=== PATIENT | male | born 1950 | race Caucasian/White ===

== ENCOUNTER 2019-04-02 17:45 | Emergency (ER) | payer MEDICARE, OTHER, SELFPAY ==
[2019-04-02 17:45] VITALS: BP 147/95; PULSE 72; RESP 14; TEMP 36.2; O2SAT 98; BMI 27.3
--- NOTE | 2019-04-02 18:00 | DI.RAD.S_ITS ---
PROCEDURE: XR FINGER RT MIN 2V INDICATIONS: crush injury TECHNIQUE: AP hand, 2 views of the second finger(s) acquired. COMPARISON: None. FINDINGS: Bones: No fractures or dislocations. No suspicious bony lesions. Osteophytic changes are noted involving the second DIP joint with near complete loss of joint space, subchondral sclerosis and cyst formation and marginal osteophyte formation. Soft tissues: No suspicious soft tissue calcifications. IMPRESSION: No acute second digit fracture or dislocation. Second DIP joint osteoarthritis. Dictated by: Amandeep Moreno M.D. on 04/02/2019 at 19:34 Approved by: Amandeep Moreno M.D. on 04/02/2019 at 19:40
[2019-04-02] MEDS: TET,DIPH,PERTUSS(ACELL),VAC/PF 0.5 ML SYRINGE IM (18:23)
--- NOTE | 2019-04-02 18:56 | ED_ITS ---
HPI - Skin/Abscess/Foreign Bdy General Chief complaint: Skin/Abscess/Foreign Body Stated complaint: right index finger laceration today Time Seen by Provider: 04/02/19 18:14 Source: patient Mode of arrival: ambulatory Limitations: no limitations History of Present Illness HPI narrative: Patient is a very pleasant 68-year-old gentleman who presents with right index finger injury. He said he was sitting on a folding chair when it fell any crush it. He has a laceration distally on the palmar side. He is able flex and extend it completely. No damage to the nail bed. complaint: laceration Related Data Home Medications Medication Instructions Recorded Confirmed AMLODIPINE BESYLATE (NORVASC) 10 mg PO Q DAY #0 04/19/10 LISINOPRIL (Zestril / Prinivil) Q DAY #0 04/19/10 Allergies Allergy/AdvReac Type Severity Reaction Status Date / Time No Known Drug Allergies Allergy Verified 04/02/19 17:59 Review of Systems Review of Systems GENERAL: Denies chills,fever HEENT: Denies throat pain RESPIRATORY: Denies dyspnea, cough, wheezing CARDIOVASCULAR: Denies chest pain, palpitations GASTROINTESTINAL: Denies nausea, vomiting MUSCULOSKELETAL: Denies extremity pain, injury SKIN: See HPI NEUROLOGIC: Denies weakness, dizziness, headache, numbness 8 point review of systems is negative except for those stated above and HPI PFSH Medical History Hypertension (Acute) Social History (Updated 04/03/19 @ 02:09 by Shiloh Atkins DO) marital status: Smoking Status: Never smoker Social History marital status: Smoking Status: Never smoker Exam Initial Vital Signs Initial Vital Signs: Vital Signs Temperature 97.1 F L 04/02/19 17:45 Pulse Rate 72 04/02/19 17:45 Respiratory Rate 14 04/02/19 17:45 Blood Pressure 147/95 H 04/02/19 17:45 Pulse Oximetry 98 04/02/19 17:45 GENERAL: Well-appearing, well-nourished and in no acute distress. CARDIOVASCULAR: peripheral pulses in tact, cap refill <2 sec RESPIRATORY: No respiratory distress, speaks in full sentences without difficulty EXTREMITIES: Normal range of motion, no clubbing or edema. Neurovascularly intact Right index finger able to flex and extend completely. He is noted have some arthritic changes in his PIP and DIP. NEUROLOGICAL: Cranial nerves II through XII grossly intact. Normal gait and speech. SKIN: Right index finger 6 cm laceration mostly on the palmar very distal end. It is flap-like. No damage to the nail bed. Procedures Laceration Repair Laceration 1: Site: hand Side (If applicable): right (index finger) Description: flap Depth: simple, single layer Local Anesthetic: lidocaine 1% Amount of anesthesia used (mL): 5 Pre-repair: wound explored, irrigated extensively and deep structures intact Skin layer closed with: nylon Size (cm): 5-0 Number of sutures: 6 Technique: simple, interrupted Nerve Block Nerve Block 1: Time out performed: Yes Local Anesthetic: lidocaine 1% Amount of anesthesia used (mL): 5 Side: right (index finger) Nerve Blocks: digital Procedure Successful: Yes Patient Tolerated Procedure: Well Complications: none Course Orders Ordered: ED Orders 04/02/19 18:00 XR finger RT min 2V Stat Discontinued Medications Diphtheria/Tetanus/Acell Pertussis (Adacel) 0.5 ml IM .ONCE ONE Stop: 04/02/19 18:20 Last Admin: 04/02/19 18:23 Dose: 0.5 ml Ondansetron HCl (Zofran Odt) 4 mg PO NOW ONE Stop: 04/02/19 18:02 Last Admin: 04/02/19 18:19 Dose: Not Given Vital Signs - 8 hr 04/02/19 19:23 Pulse Rate 70 Respiratory Rate 17 Blood Pressure [Left Arm] 133/72 Pulse Oximetry 98 MDM - Skin/Abscess/Foreign Bdy Imaging Data finger XR: Radiologist's impression: PROCEDURE: XR FINGER RT MIN 2V INDICATIONS: crush injury TECHNIQUE: AP hand, 2 views of the second finger(s) acquired. COMPARISON: None. FINDINGS: Bones: No fractures or dislocations. No suspicious bony lesions. Osteophytic changes are noted involving the second DIP joint with near complete loss of joint space, subchondral sclerosis and cyst formation and marginal osteophyte formation. Soft tissues: No suspicious soft tissue calcifications. IMPRESSION: No acute second digit fracture or dislocation. Second DIP joint osteoarthritis. Dictated by: Amandeep Moreno M.D. on 04/02/2019 at 19:34 Approved by: Amandeep Moreno M.D. on 04/02/2019 at 19:40 Discharge Plan Departure Patient Disposition: Home Clinical Impression: Laceration of right index finger w/o foreign body w/o damage to nail Qualifiers: Encounter type: initial encounter Qualified Code(s): S61.210A - Laceration without foreign body of right index finger without damage to nail, initial encounter Discharge Date/Time: 04/02/19 19:25 Interventions: ED Discharge Assessment Last Done: 04/02/19 19:25 Instructions: DI for Laceration Repair -- Finger Activity Restrictions/Additional Instructions: Wound Care: Have sutures removed in 5-7 days by your PCP. Keep wound(s) clean and dry. Wash daily with soap and water only. Do not use over the counter products (alcohol or peroxide) on the wounds unless instructed by a physician. If wound condition worsens (increased/expanding redness, developing fluid blisters,or worsening pain), either contact your doctor for an urgent re- assessment , or return to the Emergency Department. Return to the Emergency Department for any new or worsening symptoms. Return to the ED for suture/staple removal or visit a primary care doctor for removal. Return sooner for infections or problems with wound Take medications as directed Prescriptions: No Action LISINOPRIL (Zestril / Prinivil) Q DAY Qty: 0 RF: 0 AMLODIPINE BESYLATE (NORVASC) 10 mg PO Q DAY Qty: 0 RF: 0 Referrals: Negrita Anderson MD [Primary Care Provider] -
[2019-04-02 19:23] VITALS: BP 133/72; PULSE 70; RESP 17; O2SAT 98
== END 2019-04-02 19:25 | disposition home or self-care (01) ==
PROVIDERS: Emergency Provider Emergency Medicine; Family Provider Internal Medicine; PCP Internal Medicine
DX: S61.210A Laceration without foreign body of right index finger without damage to nail, initial encounter (principal); W23.0XXA Caught, crushed, jammed, or pinched between moving objects, initial encounter; Z23 Encounter for immunization
CPT/HCPCS: 12002; 64450; 73140; 90471; 99283; 90715

== ENCOUNTER → 2019-09-09 12:57 | Outpatient (ROUT) | payer MEDICARE, OTHER, SELFPAY ==
[2019-09-09 12:59] LABS: Bacteria Urine None Seen; RBC Urine None Seen (0-5/HPF)
[2019-09-09 13:09] LABS: Appearance Urine UA CLEAR; Bilirubin Urine UA NEGATIVE (NEGATIVE); Color Urine UA YELLOW; Glucose Urine UA NEGATIVE (Negative); Ketones Urine UA NEGATIVE (NEGATIVE); Leukocyte Esterase Urine UA NEGATIVE (NEGATIVE); Nitrite Urine UA NEGATIVE (Negative); Occult Blood Urine UA NEGATIVE (Negative); Protein Urine UA NEGATIVE (Negative); Urobilinogen Urine UA 0.2 E.U./dL (0.2); pH Urine UA 7.5 (4.5-8.0)
[2019-09-09 13:13] LABS: Add Manual Diff / Slide Review NO; Basophils Absolute Auto 100 /uL (0-100); Basophils Percent Auto 0.8 % (0-2); Eosinophils Absolute Auto 100 /uL (0-450); Eosinophils Percent Auto 2.1 % (2-4); Hematocrit 47.6 % (41-53); Hemoglobin 16.5 g/dL (13.5-17.5); Lymphocytes Absolute Auto 1100 /uL (1100-4500); Lymphocytes Percent Auto 18.1 % (25-40); Mean Corpuscular HGB Conc 34.6 % (30-36); Mean Corpuscular Hemoglobin 32.8 PG (26-34); Mean Corpuscular Volume 94.8 fL (80-100); Monocytes Absolute Auto 700 /uL (0-900); Monocytes Percent Auto 11.5 % (3-14); Neutrophils Absolute Auto 4000 /uL (1500-7000); Neutrophils Percent Auto 67.5 % (50-75); Platelet Count 223 X10^3/uL (150-400); Red Blood Cell Count 5.02 X10^6/uL (4.5-5.9)
[2019-09-09 13:17] LABS: Alanine Aminotransferase 55 IU/L (<50); Albumin 4.6 g/dL (3.5-5.0); Albumin Globulin Ratio 1.6 (1.0-2.8); Alkaline Phosphatase 68 U/L (38-126); Aspartate Aminotransferase 47 IU/L (17-59); BUN Creatinine Ratio 18.6 (6-22); Bilirubin Total 0.8 mg/dL (0.2-1.3); Blood Urea Nitrogen 13 mg/dL (9-20); Calcium 10.1 mg/dL (8.4-10.2); Carbon Dioxide 30 mmol/L (22-32); Chloride 104 mmol/L (98-107); Cholesterol 197 mg/dL (140-199); Estimated Glomerular Filt Rate > 60.0 mL/min (>60); Globulin 2.9 g/dL (1.7-4.1); Glucose 97 mg/dL (80-110); HDL Cholesterol 60 mg/dL (40-60); HEMOLYSIS < 15 (0-50); LDL Cholesterol Calculated 106 mg/dL (<100); Potassium 3.7 mmol/L (3.4-5.1); Sodium 143 mmol/L (137-145); Total Protein 7.5 g/dL (6.3-8.2); Triglycerides 154 mg/dL (35-150)
[2019-09-09 13:36] LABS: WBC Urine 5-10/HPF (0-5/HPF)
[2019-09-09 13:37] LABS: Amorphous Sediment Urine 3+; Culture Indicated Urine Specimen Cultured
[2019-09-13 14:51] LABS: PSA Total 0.87 ng/mL (< 4.01)
== END ==
PROVIDERS: Family Provider Internal Medicine; PCP Internal Medicine; Visit Provider Internal Medicine
DX: E78.2 Mixed hyperlipidemia (principal); I10 Essential (primary) hypertension; Z12.11 Encounter for screening for malignant neoplasm of colon; Z12.5 Encounter for screening for malignant neoplasm of prostate
CPT/HCPCS: 80053; 80061; 81001; 84153; 84154; 85025; 87086

== ENCOUNTER → 2020-09-11 15:51 | Outpatient (ROUT) | payer MEDICARE, OTHER, SELFPAY ==
[2020-09-11 16:04] LABS: Add Manual Diff / Slide Review NO; Basophils Absolute Auto 0 /uL (0-100); Basophils Percent Auto 0.8 % (0-2); Eosinophils Absolute Auto 200 /uL (0-450); Eosinophils Percent Auto 3.2 % (2-4); Hematocrit 44.7 % (41-53); Hemoglobin 15.2 g/dL (13.5-17.5); Lymphocytes Absolute Auto 1100 /uL (1100-4500); Lymphocytes Percent Auto 18.9 % (25-40); Mean Corpuscular HGB Conc 34.1 % (30-36); Mean Corpuscular Hemoglobin 32.5 PG (26-34); Mean Corpuscular Volume 95.2 fL (80-100); Monocytes Absolute Auto 700 /uL (0-900); Neutrophils Absolute Auto 4000 /uL (1500-7000); Neutrophils Percent Auto 66.1 % (50-75); Platelet Count 212 X10^3/uL (150-400); Red Cell Distribution Width 12.9 % (11.6-14.8)
[2020-09-11 16:11] LABS: Alanine Aminotransferase 72 IU/L (<50); Albumin 4.3 g/dL (3.5-5.0); Albumin Globulin Ratio 1.4 (1.0-2.8); Alkaline Phosphatase 68 U/L (38-126); Aspartate Aminotransferase 51 IU/L (17-59); BUN Creatinine Ratio 18.9 (6-22); Bilirubin Total 0.9 mg/dL (0.2-1.3); Blood Urea Nitrogen 14 mg/dL (9-20); Calcium 9.4 mg/dL (8.4-10.2); Carbon Dioxide 30 mmol/L (22-32); Chloride 104 mmol/L (98-107); Cholesterol 206 mg/dL (140-199); Estimated Glomerular Filt Rate > 60.0 mL/min (>60); Globulin 3.1 g/dL (1.7-4.1); Glucose 91 mg/dL (80-110); HDL Cholesterol 61 mg/dL (40-60); HEMOLYSIS < 15 (0-50); LDL Cholesterol Calculated 106 mg/dL (<100); Potassium 3.8 mmol/L (3.4-5.1); Sodium 140 mmol/L (137-145); Total Protein 7.4 g/dL (6.3-8.2); Triglycerides 194 mg/dL (35-150)
[2020-09-11 16:40] LABS: TSH w/ Reflex to FT4 1.58 uIU/mL (0.47-4.68)
[2020-09-11 19:14] LABS: Bacteria Urine None Seen; RBC Urine None Seen (0-5/HPF)
[2020-09-11 19:22] LABS: Appearance Urine UA CLEAR; Bilirubin Urine UA NEGATIVE (NEGATIVE); Color Urine UA YELLOW; Glucose Urine UA NEGATIVE (Negative); Ketones Urine UA NEGATIVE (NEGATIVE); Leukocyte Esterase Urine UA NEGATIVE (NEGATIVE); Nitrite Urine UA NEGATIVE (Negative); Occult Blood Urine UA NEGATIVE (Negative); Protein Urine UA NEGATIVE (Negative); Urobilinogen Urine UA 0.2 E.U./dL (0.2)
[2020-09-11 19:29] LABS: Culture Indicated Urine Cult Not Indicated; Squamous Epithelial Cell Urine 0-1 /HPF (0-5/HPF); WBC Urine 0-1/HPF (0-5/HPF)
== END ==
PROVIDERS: Family Provider Internal Medicine; PCP Internal Medicine; Visit Provider Internal Medicine
DX: I10 Essential (primary) hypertension (principal); E78.2 Mixed hyperlipidemia; Z12.5 Encounter for screening for malignant neoplasm of prostate
CPT/HCPCS: 80053; 80061; 81001; 84443; 85025; G0103

== ENCOUNTER → 2021-04-02 10:13 | Outpatient (CLI) | payer MEDICARE, OTHER, SELFPAY ==
[2021-04-02 12:21] LABS: Alanine Aminotransferase 67 IU/L (<50); Albumin 4.5 g/dL (3.5-5.0); Albumin Globulin Ratio 1.4 (1.0-2.8); Alkaline Phosphatase 59 U/L (38-126); Aspartate Aminotransferase 58 IU/L (17-59); Bilirubin Total 1.3 mg/dL (0.2-1.3); Bilirubin Unconjugated 1.1 mg/dL (0.0-1.1); Globulin 3.2 g/dL (1.7-4.1); HEMOLYSIS < 15 (0-50); Total Protein 7.7 g/dL (6.3-8.2)
== END ==
PROVIDERS: Family Provider Internal Medicine; PCP Internal Medicine; Referring Provider Internal Medicine; Visit Provider Internal Medicine
DX: I10 Essential (primary) hypertension (principal); E78.2 Mixed hyperlipidemia
CPT/HCPCS: 36415; 80076

== ENCOUNTER 2024-04-12 07:33 | Emergency (ER) | payer MEDICARE, OTHER, SELFPAY ==
[2024-04-12 07:46] VITALS: BP 154/89; PULSE 82; RESP 16; TEMP 36.7; O2SAT 95; BMI 28.3
--- NOTE | 2024-04-12 07:46 | ED.ANIMALBIT ---
HPI - Animal Bite General Chief Complaint: Animal Bite Stated Complaint: cat bites on right hand Time Seen by Provider: 04/12/24 07:46 Source: patient, RN notes reviewed and old records reviewed Mode of arrival: Ambulatory Limitations: no limitations History of Present Illness HPI narrative: 73-year-old male history of hypertension who presents with complaint of cat bite to the right hand. Patient states he was sleeping his CT renal cross him while he was asleep and he went to grab it and the cat bit him on the hand particularly the thumb. Patient states this happened a couple hours prior to arrival. States he as well as the animal or up-to-date on immunizations. Denies any other injuries. No redness warmth or skin changes this time. Patient denies any other injuries. No numbness tingling or weakness. No known drug allergies. No anticoagulants. No tobacco use, does drink alcohol, no recreational drugs. Related Data Home Medications Medication Instructions Recorded Confirmed AMLODIPINE BESYLATE (NORVASC) 10 mg PO Q DAY ##0 04/19/10 LISINOPRIL (Zestril / Prinivil) Q DAY ##0 04/19/10 Previous Rx's Medication Instructions Recorded amoxicillin 875 mg-potassium 1 tab PO BID #20 tabs 04/12/24 clavulanate 125 mg tablet Allergies Allergy/AdvReac Type Severity Reaction Status Date / Time No Known Drug Allergies Allergy Verified 04/02/19 17:59 Review of Systems Review of Systems ROS Unobtainable: All systems reviewed & are unremarkable except as noted in HPI and below Patient History Medical History (Updated 04/12/24 @ 07:53 by Shanna Morales DO) Hypertension Social History marital status: Smoking Status: Never smoker Smoking Status: Never smoker alcohol intake frequency: 3 or more drinks per day Substance Use Type: does not use Exam Narrative Exam Narrative: GENERAL: Alert and oriented x three, male in mild distress HEENT: Head normocephalic, atraumatic, EOMI, pupils reactive, face symmetric, moist mucous membranes NECK: Supple, full range of motion CARDIOVASCULAR: Regular rate and rhythm without murmurs, rubs or gallops. RESPIRATORY: Breath sounds equal bilaterally, no wheezes rales or rhonchi. EXTREMITIES: Normal range of motion, no clubbing or edema. Neurovascularly intact. Patient has puncture wounds of the right thumb consistent with cat bite, some mild swelling, no erythema no warmth no drainage. Patient has full range of motion normal sensation throughout with cap refill less than 2 seconds in all 5 fingers. 2+ radial pulse. No tenderness to touch. NEUROLOGICAL: Cranial nerves II through XII grossly intact. Moving all extremities SKIN: Warm, dry, no petechiae, no rashes or lesions other than noted above Initial Vital Signs Initial Vital Signs: Vital Signs Temperature 98.1 F 04/12/24 07:46 Pulse Rate 82 04/12/24 07:46 Respiratory Rate 16 04/12/24 07:46 Blood Pressure 154/89 H 04/12/24 07:46 Pulse Oximetry 95 04/12/24 07:46 Oxygen Delivery Method Room Air 04/12/24 07:46 Course Vital Signs Vital signs: Vital Signs - 8 hr 04/12/24 07:46 Temperature 98.1 F Pulse Rate 82 Respiratory Rate 16 Blood Pressure 154/89 H Pulse Oximetry 95 Oxygen Delivery Method Room Air MDM - Animal Bite MDM Narrative Medical decision making narrative: Patient's vitals are overall appropriate that we hypotensive. Patient has consistent with cat bite on his thumb of his right hand. Just happened a couple hours prior to arrival no signs of infection currently. Patient and animal are up-to-date on immunizations. Patient started on Augmentin with return precautions reviewed. All questions answered. Discharge Plan Departure Patient Disposition: Home Clinical Impression: Cat bite of right hand Instructions: DI for Cat Bite Activity Restrictions/Additional Instructions: Take oral antibiotics as prescribed, take your 1st dose today. Prescription was sent to [facility] in [place]. Wound Care: Keep wound(s) clean and dry. Wash daily with soap and water only. Do not use over the counter products (alcohol or peroxide)on the wounds unless instructed by a physician. You can use topical triple antibiotic ointment to the affected area twice daily as needed. If wound condition worsens (increased/expanding redness, developing fluid blisters, or worsening pain), either contact your doctor for an urgent re-assessment , or return to the Emergency Department. Return to the Emergency Department for any new or worsening symptoms. Return if fever greater than 100.4 Fahrenheit, increased swelling, increasing pain or worsening symptoms such as increased discharge or spreading redness. Prescriptions: New amoxicillin-pot clavulanate 875-125 mg tablet 1 tab PO BID Qty: 20 0RF No Action LISINOPRIL (Zestril / Prinivil) Q DAY Qty: 0 AMLODIPINE BESYLATE (NORVASC) 10 mg PO Q DAY Qty: 0 Referrals: Keanu Elias MD [Primary Care Provider] - Stand Alone Forms: Patient Portal/API
== END 2024-04-12 07:58 | disposition home or self-care (01) ==
PROVIDERS: Emergency Provider Emergency Medicine; Family Provider Internal Medicine; PCP Internal Medicine
DX: S61.451A Open bite of right hand, initial encounter (principal); W55.01XA Bitten by cat, initial encounter
CPT/HCPCS: 99281